=== PATIENT | female | born 1945 | race Caucasian/White ===

== ENCOUNTER 2016-04-19 11:30 | Emergency (ER) | payer OTHER ==
[~2016-04-19] VITALS: Ht 180.3 cm; Wt 79.5 kg
[~2016-04-19 11:30] MED LIST: CARV12.5 PO; FERR65TA PO; LISI10 PO; LORTA5 PO; VITA500S3 PO; ZOCO40TA PO
[2016-04-19 11:33] VITALS: BP 122/67; PULSE 70; RESP 18; TEMP 97.7; O2SAT 96
--- NOTE | 2016-04-19 12:42 | RADRPT ---
EXAM DATE/TIME: 04/19/2016 12:32 [facility] COMPARISON: No previous studies available for comparison. INDICATIONS : Lower back pain, fall. MEDICAL HISTORY : None. SURGICAL HISTORY : None. ENCOUNTER: Initial ACUITY: 2 days PAIN SCORE: 8/10 LOCATION: sacrum FINDINGS: Two-view examination of the sacrum and coccyx demonstrates no evidence of fracture or malalignment. The sacral ala and foramina appear symmetric and intact. The coccyx appears unremarkable. The preve rtebral soft tissues are within normal limits. CONCLUSION: Sacrum and coccyx appear intact Jhonny Marley MD on April 19, 2016 at 12:40 Board Certified Radiologist. This report was verified electronically.
--- NOTE | 2016-04-19 13:08 | PD ---
HPI Chief Complaint: Fall Time Seen by Provider: 13:07 Travel History International Travel<30 days: No Contact w/Intl Traveler<30days: No Traveled to known affect area: No History of Present Illness HPI 71-year-old female presents to emergency department for evaluation of low back pain, sacrum pain, and posterior head pain following a fall 2 days ago. Patient was at baseball field when she attempted to go up the stairs but missed step and fell backwards striking the back of her head and landing on her buttocks. She did not lose consciousness but felt dizzy initially. She states she has been up and ambulatory since the incident. Did not get evaluated initially. Patient has had no nausea, vomiting. No focal deficits or weakness. She states this morning in the shower she did have low back pain and believes that there is something wrong. PFSH Past Medical History Autoimmune Disease: No Cancer: No Cardiovascular Problems: Yes (ICD) High Cholesterol: Yes Diabetes: No Endocrine: No Genitourinary: No Hepatitis: No Hiatal Hernia: No Immune Disorder: No Implanted Vascular Access Dvce: Yes Musculoskeletal: No Neurologic: No Psychiatric: No Reproductive: Yes (TOTAL HYSTERECTOMY) Respiratory: No Thyroid Disease: No ?: Not Past Surgical History Abdominal Surgery: Yes (HYSTERECTOMY) AICD: Yes Cardiac Surgery: Yes (PACEMAKER/DEFIB) Ear Surgery: No Endocrine Surgery: No Eye Surgery: Yes (LASIK) Genitourinary Surgery: Yes Gynecologic Surgery: Yes Hysterectomy: Yes Joint Replacement: Yes (RIGHT HIP REPLAC) Oral Surgery: Yes (TEETH REMOVAL) Pacemaker: Yes Thoracic Surgery: No Other Surgery: Yes Social History Alcohol Use: No Tobacco Use: No Substance Use: No Allergies-Medications (Allergen,Severity, Reaction): Coded Allergies: Lortab (Verified Allergy, Severe, Nausea/Vomiting, 11/17/15) Reported Meds & Prescriptions Reported Meds & Active Scripts Active Robaxin (Methocarbamol) 500 Mg Tab 500 Mg PO QID PRN Naprosyn (Naproxen) 500 Mg Tab 500 Mg PO BID PRN [place] 5-325 mg (Hydrocodone-Acetaminophen 5-325 mg) 1 Tab 1-2 Tab PO Q4H PRN Prinivil 10 mg (Lisinopril) 10 Mg Tab 10 Mg PO HS 30 Days Coreg 12.5 mg (Carvedilol) 12.5 Mg Tab 12.5 Mg PO Q12HR 30 Days Reported Feosol (Ferrous Sulfate) 65 Mg Tab 325 Mg PO DAILY Vitamin B-12 (Cyanocobalamin) 500 Mcg [place] 500 Mcg PO DAILY Zocor 40 mg (Simvastatin) 40 Mg Tab 1 Tab PO HS Review of Systems Except as stated in HPI: all other systems reviewed are Neg Physical Exam Narrative GENERAL: Well-nourished female patient, ambulatory and in no acute distress SKIN: Warm and dry. HEAD: Atraumatic. Normocephalic. EYES: Pupils equal and round. EOMI No scleral icterus. No injection or drainage. ENT: No nasal bleeding or discharge. Mucous membranes pink and moist. NECK: Trachea midline. No JVD. CARDIOVASCULAR: Regular rate and rhythm. No murmur appreciated. RESPIRATORY: No accessory muscle use. Clear to auscultation. Breath sounds equal bilaterally. GASTROINTESTINAL: Abdomen soft, non-tender, nondistended. Hepatic and splenic margins not palpable. MUSCULOSKELETAL: No obvious deformities. No clubbing. No cyanosis. No edema. NEUROLOGICAL: Awake and alert. No obvious cranial nerve deficits. Motor grossly within normal limits. Normal speech. PSYCHIATRIC: Appropriate mood and affect; insight and judgment normal. Data Data Last Documented VS Vital Signs Date Time Temp Pulse Resp B/P Pulse Ox O2 Delivery O2 Flow Rate FiO2 04/19/16 11:33 97.7 70 18 122/[address] Brain W/O Iv Contrast(Rout) (04/19/16 ) Sacrum And Coccyx (04/19/16 ) Spine, Lumbar - Ltd (Ap & Lat) (04/19/16 ) MDM Medical Decision Making Medical Screen Exam Complete: Yes Emergency Medical Condition: Yes Medical Record Reviewed: Yes Differential Diagnosis Minor head injury versus intracranial hemorrhage versus skull fracture versus low back strain versus radiculopathy versus discogenic pain versus fracture Narrative Course 71-year-old female presents to emergency department for evaluation following a trip and fall that occurred 2 days ago. Patient appears without distress. No focal deficits or weakness. She does have tenderness elicited palpation on the distal lumbar spine/sacral area. CT imaging of the brain is without acute intracranial abnormality. X-ray imaging of the lumbar spine and sacrum/coccyx are without acute bony abnormality. Findings are discussed with the patient. She is discharged home with pain control. She agrees to return immediately with any acute worsening of symptoms. Diagnosis Primary Impression: Minor head injury with loss of consciousness Qualified Code: S06.9X1A - Minor head injury with loss of consciousness, 30 minutes or less, initial encounter Additional Impression: Sacrum sprain Qualified Code: S33.8XXA - Sacrum sprain, initial encounter Referrals: Primary Care Physician Patient Instructions: Contusion in Adults (ED), General Instructions, Head Injury (ED) Additional Instructions: Ice and/or warm moist heat may help to alleviate symptoms Follow-up with her primary care provider Return immediately to the emergency department with any acute worsening of symptoms Med/Other Pt SpecificInfo: Prescription(s) given Scripts Methocarbamol (Robaxin)500 Mg [id number] Mg PO QID PRN (MUSCLE SPASM) #20 TAB Ref 0 Prov:Rosy Curry 04/19/16 Naproxen (Naprosyn)500 Mg [id number] Mg PO BID PRN (PAIN SCALE 1 TO 10) #30 TAB Ref 0 Prov:Rosy Curry 04/19/16 Disposition: 01 DISCHARGE HOME Condition: Stable Rosy Curry Apr 19, 2016 13:08
--- NOTE | 2016-04-19 14:24 | RADRPT ---
EXAM DATE/TIME: 04/19/2016 13:43 [facility] COMPARISON: CT ABDOMEN & PELVIS W/O CONTRAST, November 17, 2015, 19:23. INDICATIONS : Lower back pain. MEDICAL HISTORY : None. SURGICAL HISTORY : None. ENCOUNTER: Initial ACUITY: 2 days PAIN SCORE: 7/10 LOCATION: Bilateral lower back FINDINGS: The bony structures are osteopenic or carotic with mild rotoscoliosis to the right. No definite evide nce of fracture, subluxation, compression and destructive change is appreciated. CONCLUSION: Rotoscoliosis the right with osteopenia or osteoporosis. Jhonny Marley MD on April 19, 2016 at 14:21 Board Certified Radiologist. This report was verified electronically.
--- NOTE | 2016-04-19 14:53 | RADRPT ---
EXAM DATE/TIME: 04/19/2016 14:31 [facility] COMPARISON: CT BRAIN W/O CONTRAST, September 20, 2014, 23:44. INDICATIONS : Fall two days ago onto posterior head. RADIATION DOSE: 47.83 CTDIvol (mGy) MEDICAL HISTORY : Myocardial infarction. SURGICAL HISTORY : Hysterectomy. ENCOUNTER: Initial ACUITY: 2 days PAIN SCALE: 6/10 LOCATION: occipital head TECHNIQUE: Multiple contiguous axial images were obtained of the head. Using automated exposure control and adj ustment of the mA and/or kV according to patient size, radiation dose was kept as low as reasonably a chievable to obtain optimal diagnostic quality images. FINDINGS: CEREBRUM: The ventricles are normal for age. No evidence of midline shift, mass lesion, hemorrhage or acute in farction. No extra-axial fluid collections are seen. POSTERIOR FOSSA: The cerebellum and brainstem are intact. The 4th ventricle is midline. The cerebellopontine angle i s unremarkable. EXTRACRANIAL: The visualized portion of the orbits is intact. SKULL: The calvaria is intact. No evidence of skull fracture. CONCLUSION: Normal examination. No significant change has occurred. Jhonny Marley MD on April 19, 2016 at 14:50 Board Certified Radiologist. This report was verified electronically.
[2016-04-19] MEDS ORDERED: NAPR500 PO (15:14)
[2016-04-19] MEDS ORDERED: ROBA500T PO (15:14)
== END 2016-04-19 16:00 | disposition home or self-care (01) ==
LOC: NETRI 11:30
DX: S06.9X1A Unspecified intracranial injury with loss of consciousness of 30 minutes or less, initial encounter (principal); S33.8XXA Sprain of other parts of lumbar spine and pelvis, initial encounter; E78.00 Pure hypercholesterolemia, unspecified; W10.8XXA Fall (on) (from) other stairs and steps, initial encounter; Y93.01 Activity, walking, marching and hiking; Y92.39 Other specified sports and athletic area as the place of occurrence of the external cause; Y99.9 Unspecified external cause status
CPT/HCPCS: 70450; 72100; 72220

== ENCOUNTER 2017-06-20 03:38 | Observation (INO) | payer OTHER ==
[2017-06-20] VITALS (7 sets, daily range): BP systolic 105–155; BP diastolic 54–88; PULSE 68–96; RESP 14–18; TEMP 98–99.5; O2SAT 96–99
[~2017-06-20] VITALS: Ht 175.3 cm; Wt 86.0 kg
[~2017-06-20 03:38] MED LIST changes: +NAPR500 PO; +ROBA500T PO
[2017-06-20] MEDS ORDERED: SIMV5TAB3 PO (03:47)
[2017-06-20] MEDS ORDERED: XARE10TA PO (03:47)
[2017-06-20] MEDS ORDERED: CARV12.5 PO (03:47)
[2017-06-20] MEDS ORDERED: FERR325T18 PO (03:47)
[2017-06-20] MEDS ORDERED: SODIUM CHLOR 0.9% 1000 ML INJ 1,000 ML IV ONE (04:51)
[2017-06-20] MEDS ORDERED: ONDANSETRON HCL 4 MG/2 ML VIAL IV PUSH ONE (05:00)
[2017-06-20] MEDS ORDERED: SODIUM CHLORIDE 0.9% FLUSH 10 ML FLUSH IVF PRN (05:00)
[2017-06-20 05:24] LABS: AUTOMATED NEUTROPHIL # 7.9 TH/MM3 (1.8-7.7); BASOPHIL % 0.3 % (0.0-2.0); EOSINOPHIL # 0.2 TH/MM3 (0-0.4); EOSINOPHIL % 1.6 % (0.0-4.0); HEMATOCRIT 37.9 % (35.0-46.0); HEMOGLOBIN 12.8 GM/DL (11.6-15.3); LYMPH % 14.8 % (9.0-44.0); LYMPHOCYTE # 1.5 TH/MM3 (1.0-4.8); MEAN CELL VOLUME 90.8 FL (80.0-100.0); MEAN CORPUSCULAR HEMOGLOBIN 30.6 PG (27.0-34.0); MEAN CORPUSCULAR HGB CONC 33.7 % (32.0-36.0); MEAN PLATELET VOLUME 10.2 FL (7.0-11.0); MONO % 5.1 % (0.0-8.0); MONOCYTE # 0.5 TH/MM3 (0-0.9); NEUT % 78.2 % (16.0-70.0); PLATELET COUNT 174 TH/MM3 (150-450); RED BLOOD COUNT 4.18 MIL/MM3 (4.00-5.30); RED CELL DISTRIBUTION WIDTH 12.8 % (11.6-17.2); WHITE BLOOD COUNT 10.2 TH/MM3 (4.0-11.0)
[2017-06-20 05:36] LABS: ALBUMIN 3.9 GM/DL (3.4-5.0); AST (GOT) 24 U/L (15-37); BICARBONATE 25.9 MEQ/L (21.0-32.0); BLOOD UREA NITROGEN 16 MG/DL (7-18); CALCIUM 8.7 MG/DL (8.5-10.1); CHLORIDE 109 MEQ/L (98-107); CREATININE 0.97 MG/DL (0.50-1.00); GLOMERULAR FILTRATION RATE 56 ML/MIN (>89); GLUCOSE,RANDOM 109 MG/DL (74-106); SODIUM (NA) 143 MEQ/L (136-145)
[2017-06-20 05:39] LABS: ALKALINE PHOSPHATASE 75 U/L (45-117); ALT (GPT) 30 U/L (10-53); TOTAL BILIRUBIN ADULT 1.1 MG/DL (0.2-1.0); TOTAL PROTEIN 6.9 GM/DL (6.4-8.2)
[2017-06-20] MEDS ORDERED: PROCHLORPERAZINE INJ 10 MG/2 ML VIAL IV PUSH ONE (06:45)
--- NOTE | 2017-06-20 07:57 | PD ---
HPI Chief Complaint: GI Complaint Time Seen by Provider: 04:51 Travel History International Travel<30 days: No Contact w/Intl Traveler<30days: No Traveled to known affect area: No History of Present Illness HPI 72-year-old female who presents today with complaints of nausea vomiting diarrhea 2 days. Patient states that the diarrhea started yesterday. She reports it as explosive and difficult to control. The patient denies any fevers , chills. She denies any abdominal pain. She states that the nausea vomiting also was present just before the diarrhea started. There are no reported ill contacts. She denies any recent antibiotic use. There is no blood in her vomit or in her stool. PFSH Past Medical History Autoimmune Disease: No Cancer: No Cardiovascular Problems: Yes (ICD) High Cholesterol: Yes Diabetes: No Diminished Hearing: No Endocrine: No Genitourinary: No Hepatitis: No Hiatal Hernia: No Immune Disorder: No Implanted Vascular Access Dvce: Yes Musculoskeletal: No Neurologic: No Psychiatric: No Reproductive: Yes (TOTAL HYSTERECTOMY) Respiratory: No Thyroid Disease: No Tetanus Vaccination: Unknown Influenza Vaccination: No Past Surgical History Abdominal Surgery: Yes (HYSTERECTOMY) AICD: Yes Cardiac Surgery: Yes (PACEMAKER/DEFIB) Ear Surgery: No Endocrine Surgery: No Eye Surgery: Yes (LASIK) Genitourinary Surgery: Yes Gynecologic Surgery: Yes Hysterectomy: Yes Joint Replacement: Yes (RIGHT HIP REPLAC) Oral Surgery: Yes (TEETH REMOVAL) Pacemaker: Yes Thoracic Surgery: No Other Surgery: Yes Social History Alcohol Use: No Tobacco Use: No Substance Use: No Allergies-Medications (Allergen,Severity, Reaction): Coded Allergies: acetaminophen (Unverified Allergy, Severe, Nausea/Vomiting, 06/20/17) hydrocodone (Unverified Allergy, Severe, Nausea/Vomiting, 06/20/17) Reported Meds & Prescriptions Reported Meds & Active Scripts Active Reported Ferrous Sulfate 325 Mg (65 Mg Iron) Tablet 325 Mg PO BIDPC Xarelto (Rivaroxaban) 10 Mg Tab 10 Mg PO DAILY Coreg (Carvedilol) 12.5 Mg Tab 12.5 Mg PO BID Simvastatin 5 Mg Tab 5 Mg PO DAILY Review of Systems Except as stated in HPI: all other systems reviewed are Neg General / Constitutional: No: Fever, Chills HENT: No: Headaches, Lightheadedness, Neck Pain Cardiovascular: No: Chest Pain or Discomfort, Palpitations Respiratory: Positive: Shortness of Breath (Earlier, none now), No: Cough Gastrointestinal: Positive: Nausea, Vomiting, Diarrhea, No: Abdominal Pain Genitourinary: No: Frequency, Dysuria Musculoskeletal: No: Weakness, Pain Skin: No Rash, No Lesions Neurologic: No: Weakness, Dizziness, Headache Physical Exam Narrative GENERAL: Well-developed well-nourished female in no acute respiratory distress. SKIN: Focused skin assessment warm/dry. HEAD: Atraumatic. Normocephalic. EYES: Pupils equal and round. No scleral icterus. No injection or drainage. ENT: No nasal bleeding or discharge. Mucous membranes pink and moist. NECK: Trachea midline. Supple. CARDIOVASCULAR: Regular rate and rhythm. No murmur appreciated. RESPIRATORY: No accessory muscle use. Clear to auscultation. Breath sounds equal bilaterally. GASTROINTESTINAL: Abdomen soft, nondistended. There is no tenderness to palpation. There is no hepatosplenomegaly. No rebound or guarding. MUSCULOSKELETAL: No obvious deformities. No clubbing. No cyanosis. No edema. NEUROLOGICAL: Awake and alert. No obvious cranial nerve deficits. Motor grossly within normal limits. Normal speech. Data Data Last Documented VS Vital Signs Date Time Temp Pulse Resp B/P (MAP) Pulse Ox O2 Delivery O2 Flow Rate FiO2 06/20/17 05:55 72 14 105/54 (71) 97 Room Air 06/20/17 03:42 98.0 Orders Orders Complete Blood Count With Diff (06/20/17 04:51) Comprehensive Metabolic Panel (06/20/17 04:51) Urinalysis - C+S If Indicated (06/20/17 04:51) Lipase (06/20/17 04:51) Iv Access Insert/Monitor (06/20/17 04:51) Ecg Monitoring (06/20/17 04:51) Oximetry (06/20/17 04:51) Ondansetron Inj (Zofran Inj) (06/20/17 05:00) Sodium Chlor 0.9% 1000 Ml Inj (Ns 1000 M (06/20/17 04:51) Sodium Chloride 0.9% Flush (Ns Flush) (06/20/17 05:00) C Diff Toxin Pcr (06/20/17 04:51) Enteric Path (Stool) (06/20/17 04:51) Prochlorperazine Inj (Compazine Inj) (06/20/17 06:45) Admit Order (Ed Use Only) (06/20/17 07:32) Labs Laboratory Tests Test 06/20/17 05:00 White Blood Count 10.2 TH/MM3 Red Blood Count 4.18 MIL/MM3 Hemoglobin 12.8 GM/DL Hematocrit 37.9 % Mean Corpuscular Volume 90.8 FL Mean Corpuscular Hemoglobin 30.6 PG Mean Corpuscular Hemoglobin Concent 33.7 % Red Cell Distribution Width 12.8 % Platelet Count 174 TH/MM3 Mean Platelet Volume 10.2 FL Neutrophils (%) (Auto) 78.2 % Lymphocytes (%) (Auto) 14.8 % Monocytes (%) (Auto) 5.1 % Eosinophils (%) (Auto) 1.6 % Basophils (%) (Auto) 0.3 % Neutrophils # (Auto) 7.9 TH/MM3 Lymphocytes # (Auto) 1.5 TH/MM3 Monocytes # (Auto) 0.5 TH/MM3 Eosinophils # (Auto) 0.2 TH/MM3 Basophils # (Auto) 0.0 TH/MM3 CBC Comment DIFF FINAL Differential Comment Blood Urea Nitrogen 16 MG/DL Creatinine 0.97 MG/DL Random Glucose 109 MG/DL Total Protein 6.9 GM/DL Albumin 3.9 GM/DL Calcium Level 8.7 MG/DL Alkaline Phosphatase 75 U/L Aspartate Amino Transf (AST/SGOT) 24 U/L Alanine Aminotransferase (ALT/SGPT) 30 U/L Total Bilirubin 1.1 MG/DL Sodium Level 143 MEQ/L Potassium Level 4.4 MEQ/L Chloride Level 109 MEQ/L Carbon Dioxide Level 25.9 MEQ/L Anion Gap 8 MEQ/L Estimat Glomerular Filtration Rate 56 ML/MIN Lipase 259 U/L [facility] Medical Decision Making Medical Screen Exam Complete: Yes Emergency Medical Condition: Yes Differential Diagnosis Gastroenteritis versus C. difficile versus GI bleed. Narrative Course 72-year-old female presents with nausea vomiting diarrhea. The patient has had no stool output since been in the emergency department. She has been given IV fluids and IV antiemetics. Despite 1 dose, she started vomiting again. The patient has been given a second dose of IV fluids. Given her age and her symptoms, she will be admitted to the hospital for IV fluids and emesis control. Case was discussed with Dr. Hernandez who agrees with the above plan. The patient does report that she is on blood thinners. She states that earlier her emesis was dark but not black or tarry in color. Stool cultures have been ordered. Diagnosis Primary Impression: Intractable nausea and vomiting Additional Impressions: Diarrhea HX: anticoagulation Admitting Information Admitting Physician Requests: Observation Byron Lynch MD Jun 20, 2017 07:57
[2017-06-20] MEDS ORDERED: BISACODYL 10 MG SUPP RECTAL PRN (08:00)
[2017-06-20] MEDS ORDERED: TEMAZEPAM 15 MG CAP PO PRN (08:00)
[2017-06-20] MEDS ORDERED: METOCLOPRAMIDE HCL 10 MG/2 ML VIAL IV PUSH PRN (08:00)
[2017-06-20] MEDS ORDERED: NALOXONE HCL 0.4 MG/ML AMP IV PUSH PRN (08:00)
[2017-06-20] MEDS ORDERED: LACTULOSE SYRUP 20 GM/30 ML CUP PO PRN (08:00)
[2017-06-20] MEDS ORDERED: ONDANSETRON HCL 4 MG/2 ML VIAL IVP PRN (08:00)
[2017-06-20] MEDS ORDERED: SENNOSIDES 8.6 MG TAB PO PRN (08:00)
[2017-06-20] MEDS ORDERED: SODIUM CHLORIDE 0.9% FLUSH 10 ML FLUSH IV FLUSH PRN (08:00)
[2017-06-20] MEDS ORDERED: MAGNESIUM HYDROXIDE SUSP 30 ML CUP PO PRN (08:00)
[2017-06-20] MEDS ORDERED: PROCHLORPERAZINE 25 MG SUPP RECTAL PRN (08:00)
[2017-06-20] MEDS: SODIUM CHLORIDE 0.9% FLUSH 10 ML FLUSH IV FLUSH SCH ×2 (09:00→21:00)
[2017-06-20] MEDS: SODIUM CHLOR 0.9% 1000 ML INJ 1,000 ML IV SCH ×2 (10:12→13:12)
--- NOTE | 2017-06-20 18:37 | HHI.HP ---
HPI Service [facility] Primary Care Physician Patrick Brito MD Admission Diagnosis intractable nause vomiting, diarhea Diagnoses: Chief Complaint: Nausea vomiting, diarrhea Travel History International Travel<30 Days: No Contact w/Intl Traveler <30 Da: No Traveled to Known Affected Are: No History of Present Illness Ms. Mcmullen is a pleasant 72-year-old female with a history of cardiomyopathy, cardiac arrest status post AICD placement, atrial fibrillation who presents to the emergency department on 06/20/2017 due to intractable nausea vomiting and diarrhea that started night before this presentation. Patient denies any chest pain, shortness of breath, fever or chills. She denies any abdominal pain. No blood in the vomitus or stool. She denies any recent exposure to unusual food or drink. No travel outside this area. Her at home has been sick but he is doing better now. No changes in bladder habits. Patient was started on fluid in the emergency department. She already feels better and wants to eat. By the time of this evaluation was done, C. difficile colitis PCR returned negative. Review of Systems Except as stated in HPI: all other systems reviewed are Neg Past Family Social History Past Medical History Atrial fibrillation cardiomyopathy, cardiac arrest status post AICD placement. Hyperlipidemia Past Surgical History Total hysterectomy, appendectomy, hip replacement Reported Medications Ferrous Sulfate 325 Mg (65 Mg Iron) Tablet 325 Mg PO BIDPC Xarelto (Rivaroxaban) 10 Mg Tab 10 Mg PO DAILY Coreg (Carvedilol) 12.5 Mg Tab 12.5 Mg PO BID Simvastatin 5 Mg Tab 5 Mg PO DAILY Allergies: Coded Allergies: acetaminophen (Unverified Allergy, Severe, Nausea/Vomiting, 06/20/17) hydrocodone (Unverified Allergy, Severe, Nausea/Vomiting, 06/20/17) Family History Heart disease in both mother and father. Social History Patient denies using tobacco, illicit drugs, alcohol. Physical Exam Vital Signs Vital Signs Date Time Temp Pulse Resp B/P (MAP) Pulse Ox O2 Delivery O2 Flow Rate FiO2 06/20/17 16:13 98.8 96 18 114/60 (78) 97 06/20/17 12:33 99.5 90 16 109/76 (87) 96 06/20/17 11:31 06/20/17 10:00 80 16 155/88 (110) 97 Room Air 06/20/17 05:55 72 14 105/54 (71) 97 Room Air 06/20/17 05:54 16 96 Room Air 06/20/17 03:42 98.0 68 16 114/56 (75) 99 Physical Exam GENERAL: This is a well-nourished, well-developed patient, in no apparent distress. SKIN: No rashes, ecchymoses or lesions. Warm and dry. HEAD: Atraumatic. Normocephalic. No temporal or scalp tenderness. EYES: Pupils equal round and reactive. No injection or drainage. ENT: Nose without bleeding, purulent drainage or septal hematoma. Airway patent. NECK: Trachea midline. No lymphadenopathy. Supple, nontender, no meningeal signs. CARDIOVASCULAR: Regular rate and rhythm without murmurs, gallops, or rubs. No JVD. RESPIRATORY: Clear to auscultation. Breath sounds equal bilaterally. No wheezes , rales, or rhonchi. GASTROINTESTINAL: Abdomen soft, non-tender, nondistended. No guarding. MUSCULOSKELETAL: Extremities without clubbing, cyanosis, or edema. NEUROLOGICAL: Awake and alert. Cranial nerves II through XII intact. No focal neurological deficits. Normal speech. Laboratory Laboratory Tests Test 06/20/17 05:00 06/20/17 07:55 White Blood Count 10.2 Red Blood Count 4.18 Hemoglobin 12.8 Hematocrit 37.9 Mean Corpuscular Volume 90.8 Mean Corpuscular Hemoglobin 30.6 Mean Corpuscular Hemoglobin Concent 33.7 Red Cell Distribution Width 12.8 Platelet Count 174 Mean Platelet Volume 10.2 Neutrophils (%) (Auto) 78.2 Lymphocytes (%) (Auto) 14.8 Monocytes (%) (Auto) 5.1 Eosinophils (%) (Auto) 1.6 Basophils (%) (Auto) 0.3 Neutrophils # (Auto) 7.9 Lymphocytes # (Auto) 1.5 Monocytes # (Auto) 0.5 Eosinophils # (Auto) 0.2 Basophils # (Auto) 0.0 CBC Comment DIFF FINAL Differential Comment Blood Urea Nitrogen 16 Creatinine 0.97 Random Glucose 109 Total Protein 6.9 Albumin 3.9 Calcium Level 8.7 Alkaline Phosphatase 75 Aspartate Amino Transf (AST/SGOT) 24 Alanine Aminotransferase (ALT/SGPT) 30 Total Bilirubin 1.1 Sodium Level 143 Potassium Level 4.4 Chloride Level 109 Carbon Dioxide Level 25.9 Anion Gap 8 Estimat Glomerular Filtration Rate 56 Lipase 259 Stool C. difficile Toxin (PCR) NEGATIVE Stl C. difficile Toxin Epiderm 027 PRESUMPTIVE NEGATIVE Date/Time Source Procedure Growth Status 06/20/17 07:55 Stool Stool - Final Norovirus Complete Result Diagram: 06/20/17 0500 06/20/17 0500 Caprini VTE Risk Assessment Caprini VTE Risk Assessment: No/Low Risk (score <= 1) Caprini Risk Assessment Model Point Value = 1 Point Value = 2 Point Value = 3 Point Value = 5 Age 41-60 Minor surgery BMI > 25 kg/m2 Swollen legs Varicose veins or History of unexplained or recurrent spontaneous Oral contraceptives or hormone replacement Sepsis (< 1 month) Serious lung disease, including pneumonia (< 1 month) Abnormal pulmonary function Acute myocardial infarction Congestive heart failure (< 1 month) History of inflammatory bowel disease Medical patient at bed rest Age 61-74 Arthroscopic surgery Major open surgery (> 45 min) Laparoscopic surgery (> 45 min) Malignancy Confined to bed (> 72 hours) Immobilizing plaster cast Central venous access Age >= 75 History of VTE Family history of VTE Factor V Leiden Prothrombin [id number] Lupus anticoagulant Anticardiolipin antibodies Elevated serum homocysteine Heparin-induced thrombocytopenia Other congenital or acquired thrombophilia Stroke (< 1 month) Elective arthroplasty Hip, pelvis, or leg fracture Acute spinal cord injury (< 1 month) Prophylaxis Regimen Total Risk Factor Score Risk Level Prophylaxis Regimen 0-1 Low Early ambulation 2 Moderate Order ONE of the following: *Sequential Compression Device (SCD) *Heparin 5000 units SQ BID 3-4 Higher Order ONE of the following medications: *Heparin 5000 units SQ TID *Enoxaparin/Lovenox 40 mg SQ daily (WT < 150 kg, CrCl > 30 mL/min) *Enoxaparin/Lovenox 30 mg SQ daily (WT < 150 kg, CrCl > 10-29 mL/min) *Enoxaparin/Lovenox 30 mg SQ BID (WT < 150 kg, CrCl > 30 mL/min) AND/OR *Sequential Compression Device (SCD) 5 or more Highest Order ONE of the following medications: *Heparin 5000 units SQ TID (Preferred with Epidurals) *Enoxaparin/Lovenox 40 mg SQ daily (WT < 150 kg, CrCl > 30 mL/min) *Enoxaparin/Lovenox 30 mg SQ daily (WT < 150 kg, CrCl > 10-29 mL/min) *Enoxaparin/Lovenox 30 mg SQ BID (WT < 150 kg, CrCl > 30 mL/min) AND *Sequential Compression Device (SCD) Assessment and Plan Problem List: (1) Viral gastroenteritis ICD Code: A08.4 - Viral intestinal infection, unspecified Assessment and Plan Ms. Mcmullen is a pleasant 72-year-old female with a history of cardiomyopathy, cardiac arrest status post AICD placement who presented to the emergency department on 06/20/2017 due to nausea vomiting and diarrhea. She denies any abdominal pain. Viral gastroenteritis C. difficile PCR was negative. Will start patient on normal saline at 100 cc/h. Provide supportive care with antinausea medications. Patient wants to eat. She was advanced to regular diet. However she was advised to avoid greasy rich foods. Later in the day stool culture shows Norovirus. Chronic conditions Cardiomyopathy Hx of Cardiac arrest Afib - Continue home meds. Full code. Probable discharge tomorrow if patient continues to do well and tolerates diet well. Wagner Hernandez DO Jun 20, 2017 18:37
[2017-06-21 00:48] VITALS: BP 95/50; PULSE 79; RESP 18; TEMP 99.2; O2SAT 94
[2017-06-21] MEDS: SODIUM CHLOR 0.9% 1000 ML INJ 1,000 ML IV SCH (02:10)
[2017-06-21 05:51] VITALS: BP 108/58; PULSE 85; RESP 16; TEMP 98.8; O2SAT 94
[2017-06-21 07:22] LABS: AUTOMATED NEUTROPHIL # 3.5 TH/MM3 (1.8-7.7); BASOPHIL % 0.5 % (0.0-2.0); EOSINOPHIL # 0.1 TH/MM3 (0-0.4); EOSINOPHIL % 1.6 % (0.0-4.0); HEMATOCRIT 35.6 % (35.0-46.0); HEMOGLOBIN 12.1 GM/DL (11.6-15.3); LYMPH % 25.2 % (9.0-44.0); LYMPHOCYTE # 1.3 TH/MM3 (1.0-4.8); MEAN CELL VOLUME 89.8 FL (80.0-100.0); MEAN CORPUSCULAR HEMOGLOBIN 30.4 PG (27.0-34.0); MEAN CORPUSCULAR HGB CONC 33.9 % (32.0-36.0); MEAN PLATELET VOLUME 9.5 FL (7.0-11.0); MONO % 5.7 % (0.0-8.0); MONOCYTE # 0.3 TH/MM3 (0-0.9); PLATELET COUNT 131 TH/MM3 (150-450); RED BLOOD COUNT 3.97 MIL/MM3 (4.00-5.30); RED CELL DISTRIBUTION WIDTH 12.9 % (11.6-17.2); WHITE BLOOD COUNT 5.2 TH/MM3 (4.0-11.0)
[2017-06-21 07:47] LABS: BICARBONATE 19.7 MEQ/L (21.0-32.0); CALCIUM 7.9 MG/DL (8.5-10.1); CREATININE 0.85 MG/DL (0.50-1.00)
[2017-06-21] MEDS ORDERED: ZOFR4TAB3 SL (07:55)
--- NOTE | 2017-06-21 08:00 | HHI.PR ---
Subjective Remarks Follow up for Norovirus gastroenteritis. Patient is doing well. No further N/V or diarrhea. No abd pain. Wants to go home. Objective Vitals Vital Signs Date Time Temp Pulse Resp B/P (MAP) Pulse Ox O2 Delivery O2 Flow Rate FiO2 06/21/17 05:51 98.8 85 16 108/58 (75) 94 06/21/17 00:48 99.2 79 18 95/50 (65) 94 06/20/17 20:45 99.3 86 18 113/57 (75) 98 06/20/17 16:13 98.8 96 18 114/60 (78) 97 06/20/17 12:33 99.5 90 16 109/76 (87) 96 06/20/17 11:31 06/20/17 10:00 80 16 155/88 (110) 97 Room Air I/O 06/20/17 06/20/17 06/20/17 06/21/17 06/21/17 06/21/17 07:00 15:00 23:00 07:00 15:00 23:00 Intake Total 1000 ml 1000 ml Balance 1000 ml 1000 ml Intake IV Total 1000 ml 1000 ml Result Diagram: 06/21/17 0640 06/21/17 0640 Objective Remarks GENERAL: Alert, Oriented x 3, NAD. SKIN: Warm and dry. HEAD: Normocephalic. EYES: No scleral icterus. No injection or drainage. NECK: Supple, trachea midline. No JVD or lymphadenopathy. CARDIOVASCULAR: Regular rate and rhythm without murmurs, gallops, or rubs. RESPIRATORY: Breath sounds equal bilaterally. No accessory muscle use. GASTROINTESTINAL: Abdomen soft, non-tender, nondistended. MUSCULOSKELETAL: No cyanosis, or edema. BACK: Nontender without obvious deformity. No CVA tenderness. Procedures None. A/P Problem List: (1) Viral gastroenteritis ICD Code: A08.4 - Viral intestinal infection, unspecified Assessment and Plan Ms. Mcmullen is a pleasant 72-year-old female with a history of cardiomyopathy, cardiac arrest status post AICD placement who presented to the emergency department on 06/20/2017 due to nausea vomiting and diarrhea. She denies any abdominal pain. Viral gastroenteritis C. difficile PCR was negative. normal saline at 100 cc/h. Provide supportive care with antinausea medications. Patient wants to eat. She was advanced to regular diet. However she was advised to avoid greasy rich foods. Later in the day stool culture shows Norovirus. Chronic conditions Cardiomyopathy Hx of Cardiac arrest Afib - Continue home meds. Full code. Discharge patient to home Condition on discharge: Improved Regular Diet as tolerated Ad Kait activity Rx written: Cydney STOVALL PRN Follow-up with primary care physician within one week. Wagner Hernandez DO Jun 21, 2017 08:00
== END 2017-06-21 10:12 | disposition home or self-care (01) ==
LOC: NEPE 03:38 → NEDA 07:34 → NEPHCDU 11:22
PROVIDERS: ADMIT Internal Medicine; ATTEND Internal Medicine
DX: A08.4 Viral intestinal infection, unspecified (principal); I42.9 Cardiomyopathy, unspecified; I48.91 Unspecified atrial fibrillation; E78.00 Pure hypercholesterolemia, unspecified; Z95.810 Presence of automatic (implantable) cardiac defibrillator; Z86.74 Personal history of sudden cardiac arrest; Z79.899 Other long term (current) drug therapy; Z79.01 Long term (current) use of anticoagulants
CPT/HCPCS: 80048; 80053; 83690; 85025; 87493; 87506; 96361; 96374; 96375; 99285; G0378; J0780; J2405; J7030